=== PATIENT | female | born 1975 | race Caucasian/White ===

== ENCOUNTER 2022-06-13 10:48 | Emergency (ER) | payer BC ==
[2022-06-13] MEDS ORDERED: Lidocaine 1% (PF) 30 ML VIAL ONE (14:39)
== END 2022-06-13 15:06 | disposition home or self-care (01) ==
LOC: CSHERS 10:48
DX: L02.411 Cutaneous abscess of right axilla (principal); L03.111 Cellulitis of right axilla
CPT/HCPCS: 10060; J2001